=== PATIENT | male | born 1955 | race Hispanic/Latino ===

== ENCOUNTER 2018-12-04 19:28 | Emergency (ER) | payer MEDICARE, MEDICAID ==
[2018-12-04 19:42] VITALS: BP 116/69
--- NOTE | 2018-12-04 19:42 | Emergency Department Report ---
Blank Doc - Documentation Documentation: 63 y o male presents with right sided chest pain x 2 days. worsens with certain movemnt denies trauma,fall or injury, URI sx, f,
--- NOTE | 2018-12-04 20:26 | Emergency Department Report ---
<ALFREDO GREEN - Last Filed: 12/04/18 20:21> ED Chest Pain HPI - General Chief Complaint: Chest Pain Stated Complaint: CHEST PAIN RIGHT Time Seen by Provider: 12/04/18 19:39 Source: patient Mode of arrival: Ambulatory Limitations: No Limitations - History of Present Illness Initial Comments: 63-year-old male with a significant past medical history of hypertension, diabetes and cardiac disease comes in today for right chest pain 2 days. Patient denies any nausea vomiting sweating fever or cough. Patient does report chest pain with deep breath in chest pain with movement to the right chest wall. Patient is currently taking metoprolol 25 mg twice a day and metformin 500 mg twice a day. Prescriber for those [address] Charlie Dobbins. She last filled his medication on 11/20/2018. She denies any radiation of pain and states he has pain with certain movement to his right arm. MD Complaint: chest pain -: days(s) (2) Onset: other (with movement) Pain Location: right chest Pain Radiation: none Severity: mild Severity scale (0 -10): 9 Quality: other (pulling to right chest) Consistency: intermittent Improves With: rest Worsens With: movement re: denies: nausea, vomting, diaphoresis, dyspnea, sense of impending doom Other Symptoms: denies: cough, fever, palpitations, burping Treatments Prior to Arrival: none Aspirin use within the Past 7 Days: (0) No - Related Data Allergies Allergy/AdvReac Type Severity Reaction Status Date / Time nitrous oxide Allergy Unknown Verified 12/04/18 19:46 Heart Score - HEART Score History: Slightly suspicious EKG: Normal Age: > 65 Risk factors: > 3 risk factors or hx of atherosclerotic disease Troponin: 1-3x normal limit HEART Score: 5 - Critical Actions Critical Actions: 4-6 pts:12-16.6% risk of adverse cardiac event. Should be admitted ED Review of Systems Comment: All other systems reviewed and negative Constitutional: denies: chills, fever Eyes: denies: eye pain, eye discharge, vision change ENT: denies: ear pain, throat pain Respiratory: denies: cough, shortness of breath, wheezing Cardiovascular: chest pain (right side) Gastrointestinal: denies: abdominal pain, nausea, diarrhea Genitourinary: denies: urgency, dysuria Musculoskeletal: denies: back pain, joint swelling, arthralgia Skin: denies: rash, lesions ED Past Medical Hx - Past Medical History Hx Hypertension: Yes Hx Diabetes: Yes Additional medical history: Cardiac Disease - Surgical History Past Surgical History?: No - Social History Smoking Status: Former Smoker Substance Use Type: None ED Physical Exam - General Limitations: No Limitations General appearance: alert, in no apparent distress - Head Head exam: Present: atraumatic, normocephalic - Eye Eye exam: Present: PERRL, EOMI - ENT ENT exam: Present: mucous membranes moist - Neck Neck exam: Present: normal inspection, full ROM. Absent: tenderness - Respiratory Respiratory exam: Present: normal lung sounds bilaterally, chest wall tenderness (right side chest tenderness). Absent: respiratory distress - Cardiovascular Cardiovascular Exam: Present: regular rate, normal rhythm. Absent: systolic murmur, diastolic murmur, rubs, gallop - GI/Abdominal GI/Abdominal exam: Present: soft, normal bowel sounds JONI score - Joni Score Age > 65: (1) Yes Aspirin use within the Past 7 Days: (0) No 3 or more CAD Risk Factors: (1) Yes 2 or more Angina events in past 24 hrs: (0) No Known CAD with more than 50% Stenosis: (0) No Elevated Cardiac Markers: (0) No ST Deviation Greater than 0.5mm: (0) No JONI Score: 2 ED Medical Decision Making - Medical Decision Making Patient has been evaluated but this provider in [facility]. Patient has chest wall tenderness to the right side. I feel that there is no cardiac issue or presentation for this patient. Patient has a negative chest x-ray EKG is stable labs are within normal limits. Dr. Tam ER attending came to evaluate patient as well if this patient is safe to give discharged home to follow up with his primary care provider. ED Disposition Clinical Impression: Chest wall tenderness Disposition: DC-01 TO HOME OR SELFCARE Is pt being admited?: No Does the pt Need Aspirin: No Condition: Stable Instructions: Costochondritis (ED) Additional Instructions: Please continue taking your chronic medications as prescribed by your primary care provider. Follow-up with her primary care provider if symptoms persist. Referrals: JAY DOBBINS MD [Referring] - 3-5 Days <IVORY DIOR III - Last Filed: 01/15/19 19:25> ED Review of Systems ROS: Stated complaint: CHEST PAIN RIGHT Other details as noted in HPI ED Course Vital Signs 12/04/18 12/04/18 12/04/18 19:39 19:40 20:13 Temperature 97.7 F 97.7 F Pulse Rate 70 70 Respiratory 18 18 16 Rate Blood Pressure 116/69 116/69 O2 Sat by Pulse 94 98 Oximetry - Reevaluation(s) Reevaluation #1: I discussed case with provider caring for the patient. I examined the patient. It appears the patient is having right-sided chest pain that is completely reproducible with palpation. With chest wall palpation reproduced the patient's symptoms. Patient appears to be stable for discharge. Patient patient's chest pain is secondary to chest wall muscle pain. Patient will be discharged home with discharge instructions. I agree with the assessment and plan of care the provider. 12/04/18 21:31 ED Medical Decision Making - Lab Data Result diagrams: 12/04/18 19:56 12/04/18 19:56 Critical care attestation.: If time is entered above; I have spent that time in minutes in the direct care of this critically ill patient, excluding procedure time. ED Disposition Is pt being admited?: No Does the pt Need Aspirin: No
[2018-12-04 20:28] LABS: Basophils % (Auto) 0.5 % (0.0-1.8); Eosinophils # (Auto) 0.1 K/mm3 (0.0-0.4); Eosinophils % (Auto) 1.7 % (0.0-4.3); Hematocrit 41.5 % (35.5-45.6); Hemoglobin 14.3 gm/dl (11.8-15.2); Lymphocytes # (Auto) 2.1 K/mm3 (1.2-5.4); Lymphocytes % (Auto) 31.9 % (13.4-35.0); Mean Corpuscular HGB Conc 35 % (32-34); Mean Corpuscular Volume 86 fl (84-94); Monocytes # (Auto) 0.5 K/mm3 (0.0-0.8); Monocytes % (Auto) 7.6 % (0.0-7.3); Platelet Count 200 K/mm3 (140-440); Red Blood Count 4.84 M/mm3 (3.65-5.03); Red Cell Distribution Width 13.5 % (13.2-15.2)
--- NOTE | 2018-12-04 20:32 | XRay Report ---
PROCEDURE: XR CHEST ROUTINE 2V TECHNIQUE: PA and lateral chest radiographs were obtained. HISTORY: Chest Pain COMPARISONS: None. FINDINGS: Heart: Normal. Mediastinum/Vessels: Normal. Lungs/Pleural space: Lungs are hyperinflated. There are no confluent infiltrates or mass lesions. Pl eural spaces are clear.. Bony thorax: No acute osseous abnormality. IMPRESSION: COPD No acute pulmonary process. This document is electronically signed by Madan Crouch MD., December 04 2018 08:30:06 PM ET
[2018-12-04 20:40] LABS: BUN/Creatinine Ratio 15; Blood Urea Nitrogen 12 mg/dL (9-20); Calcium 8.9 mg/dL (8.4-10.2); Hemolysis Index 26
== END 2018-12-04 22:05 | disposition home or self-care (01) ==
LOC: ED 19:28
DX: R07.89 Other chest pain (principal); I10 Essential (primary) hypertension; E11.9 Type 2 diabetes mellitus without complications; Z87.891 Personal history of nicotine dependence
CPT/HCPCS: 36415; 71046; 80048; 84484; 85025; 93005; 93010

== ENCOUNTER 2019-11-11 23:25 | Emergency (ER) | payer MEDICAID, MEDICARE ==
--- NOTE | 2019-11-12 09:32 | XRay Report ---
LEFT FOOT 3 VIEWS INDICATION / CLINICAL INFORMATION: Left foot pain. COMPARISON: None available. FINDINGS: BONES / JOINT(S): There are small dorsal and plantar calcaneal spurs/heterotopic ossification. There are mild degenerative changes involving the first metatarsophalangeal joint. There is no evidence of fracture, dislocation or destructive lesion. SOFT TISSUES: There is mild soft tissue swelling involving the dorsum of the foot distally. ADDITIONAL FINDINGS: None. Signer Name: Emmanuel Serna MD Signed: 11/12/2019 9:27 AM Workstation Name: [id number]
--- NOTE | 2019-11-12 10:15 | Emergency Department Report ---
ED Lower Extremity HPI - General Chief Complaint: Extremity Injury, Lower Stated Complaint: LT FOOT PAIN Time Seen by Provider: 11/12/19 08:41 Source: patient Mode of arrival: Ambulatory Limitations: No Limitations - History of Present Illness Initial Comments: This is a 64-year-old male nontoxic, well nourished in appearance, no acute signs of distress presents to the ED with c/o of left foot pain 1 week. Patient stated that he has been walking a lot and developed pain. Patient denies any trauma. Patient denies any numbness, tingling, fever, chills, nausea, vomiting, chest pain, shortness of breath, headache, stiff neck. Patient denies any joint swelling or joint redness. Patient denies decreased range of motion. Patient stated has decreased gait due to pain. Patient denies any drug allergies. MD Complaint: foot injury -: week(s) (1) Injury: Foot: Left Severity: mild Severity scale (0 -10): 8 Improves With: immobilization Worsens With: weight bearing Associated Symptoms: able to partially bear weight, ambulatory. denies: snap/pop sensation, swelling, numbness, tingling, unable to bear weight - Related Data Previous Rx's Medication Instructions Recorded Last Taken Type Acetaminophen/Codeine [Tylenol 1 tab PO Q6H PRN #12 tab 11/12/19 Unknown Rx /Codeine # 3 tab] Clindamycin [Clindamycin CAP] 300 mg PO Q8H #21 cap 11/12/19 Unknown Rx Allergies Allergy/AdvReac Type Severity Reaction Status Date / Time nitrous oxide Allergy Unknown Verified 12/04/18 19:46 ED Review of Systems ROS: Stated complaint: LT FOOT PAIN Other details as noted in HPI Constitutional: denies: chills, fever Eyes: denies: eye pain, eye discharge, vision change ENT: denies: ear pain, throat pain Respiratory: denies: cough, shortness of breath, wheezing Cardiovascular: denies: chest pain, palpitations Endocrine: no symptoms reported Gastrointestinal: denies: abdominal pain, nausea, diarrhea Genitourinary: denies: urgency, dysuria Musculoskeletal: denies: back pain, joint swelling, arthralgia Skin: denies: rash, lesions Neurological: denies: headache, weakness, paresthesias Psychiatric: denies: anxiety, depression Hematological/Lymphatic: denies: easy bleeding, easy bruising ED Past Medical Hx - Past Medical History Hx Hypertension: Yes Hx CVA: Yes Hx Diabetes: Yes Additional medical history: Cardiac Disease - Social History Smoking Status: Former Smoker Substance Use Type: None - Medications Home Medications: Home Medications Medication Instructions Recorded Confirmed Last Taken Type Acetaminophen/Codeine [Tylenol 1 tab PO Q6H PRN #12 tab 11/12/19 Unknown Rx /Codeine # 3 tab] Clindamycin [Clindamycin CAP] 300 mg PO Q8H #21 cap 11/12/19 Unknown Rx ED Physical Exam - General Limitations: No Limitations General appearance: alert, in no apparent distress - Head Head exam: Present: atraumatic, normocephalic - Neck Neck exam: Present: normal inspection, full ROM. Absent: tenderness, meningismus, lymphadenopathy - Extremities Exam Extremities exam: Present: normal inspection, full ROM, tenderness, normal capillary refill. Absent: joint swelling, calf tenderness - Expanded Lower Extremity Exam Left Hip exam: Present: normal inspection, full ROM. Absent: tenderness, swelling Upper Leg exam: Present: normal inspection, full ROM. Absent: tenderness, swelling Knee exam: Present: normal inspection, full ROM. Absent: tenderness, swelling Lower Leg exam: Present: normal inspection, full ROM. Absent: tenderness, swelling Ankle exam: Present: normal inspection, full ROM. Absent: tenderness, swelling Foot/Toe exam: Present: normal inspection, full ROM, tenderness, erythema. Absent: swelling, abrasion, laceration, ecchymosis, deformity, crepidus, dislocation, amputation, puncture wound, foreign body, calcaneal tenderness, tenderness at base of 5th metatarsal, nail avulsion, subungual hematoma Neuro vascular tendon exam: Present: no vascular compromise Gait: Positive: observed and limited by pain 1 - pain with some erythema noted - Back Exam Back exam: Present: normal inspection, full ROM - Neurological Exam Neurological exam: Present: alert, oriented X3, normal gait - Psychiatric Psychiatric exam: Present: normal affect, normal mood - Skin Skin exam: Present: warm, dry, intact, normal color. Absent: rash ED Course Vital Signs 11/12/19 00:00 Temperature 98.2 F Pulse Rate 95 H Respiratory 18 Rate Blood Pressure 156/79 O2 Sat by Pulse 95 Oximetry - Reevaluation(s) Reevaluation #1: 11/12/19 10:12 Patient is speaking in full sentences with no signs of distress noted. ED Lower Extremity MDM - Medical Decision Making This is a 64-year-old male that presents with right foot strain vs. cellulitis. Patient is stable and was examined by me. I referred patient to an orthopedic doctor for further evaluation for possible MRI. X-ray has been obtained and dictated by the radiologist. Patient is notified of the x-ray report with noted by the patient. Patient does have normal gait with no tenderness and no joint swelling. No ecchymosis. no joint redness or swelling. Not warm to touch. No signs of cellulites present. Patient was instructed to RICE therapy. Patient be treated with Tylenol with codeine as well as clindamycin. Patient also received a good Rx discount prescription card at discharge. At time of discharge, the patient does not seem toxic or ill in appearance. No acute signs of distress noted. Patient agrees to discharge treatment plan of care. No further questions noted by the patient. Critical care attestation.: If time is entered above; I have spent that time in minutes in the direct care of this critically ill patient, excluding procedure time. ED Disposition Clinical Impression: Strain of left foot Qualifiers: Encounter type: initial encounter Qualified Code(s): S96.912A - Strain of unspecified muscle and tendon at ankle and foot level, left foot, initial encounter Cellulitis Qualifiers: Site of cellulitis: extremity Site of cellulitis of extremity: lower extremity Laterality: left Qualified Code(s): L03.116 - Cellulitis of left lower limb Disposition: DC-01 TO HOME OR SELFCARE Is pt being admited?: No Does the pt Need Aspirin: No Condition: Stable Instructions: Cellulitis (ED) Additional Instructions: Follow-up with a primary care and orthopedic doctor in 3-5 days or if symptoms worsen and continue return to emergency room as soon as possible. Do not operate any machinery while taking Tylenol with codeine as this may cause drowsiness. Prescriptions: Clindamycin [Clindamycin CAP] 300 mg PO Q8H #21 cap Acetaminophen/Codeine [Tylenol /Codeine # 3 tab] 1 tab PO Q6H PRN #12 tab PRN Reason: Pain , Severe (7-10) Referrals: PRIMARY CAREMD [Primary Care Provider] - 3-5 Days BRYAN ELLER MD [Staff Physician] - 3-5 Days DEANN CRUZ MD [Staff Physician] - 3-5 Days [facility] [Outside] - 3-5 Days
[2019-11-12 10:59] VITALS: BP 110/70
== END 2019-11-12 10:57 | disposition home or self-care (01) ==
LOC: ED 23:25
DX: S96.912A Strain of unspecified muscle and tendon at ankle and foot level, left foot, initial encounter (principal); L03.116 Cellulitis of left lower limb; Z88.8 Allergy status to other drugs, medicaments and biological substances; Z86.73 Personal history of transient ischemic attack (TIA), and cerebral infarction without residual deficits; Z98.890 Other specified postprocedural states; Z87.891 Personal history of nicotine dependence; X58.XXXA Exposure to other specified factors, initial encounter; Y93.89 Activity, other specified; Y92.89 Other specified places as the place of occurrence of the external cause; Y99.8 Other external cause status
CPT/HCPCS: 99283